=== PATIENT | male | born 1940 | race Caucasian/White ===

== ENCOUNTER 2017-03-10 17:50 | Emergency (ER) | payer OTHER, MEDICARE ==
[~2017-03-10] VITALS: Ht 167.6 cm; Wt 108.9 kg
[2017-03-10] MEDS ORDERED: VALSARTAN320 M1 PO (18:43)
[2017-03-10] MEDS ORDERED: CARVEDILOL25 M1 PO (18:43)
[2017-03-10] MEDS ORDERED: CENTRUM SILVER1 EAC4 PO (18:44)
[2017-03-10] MEDS ORDERED: ASPIRIN EC81 M1 PO (18:44)
[2017-03-10] MEDS ORDERED: CRESTOR5 M1 PO (18:44)
[2017-03-10] MEDS ORDERED: METFORMIN HCL1000 M1 PO (18:44)
[2017-03-10] MEDS ORDERED: MAGNESIUM400 M1 PO (18:45)
[2017-03-10] MEDS ORDERED: IBUPROFEN800 M1 PO (18:45)
[2017-03-10] MEDS ORDERED: AMLODIPINE BESYL5 M1 PO (18:45)
[2017-03-10] MEDS ORDERED: GLIMEPIRIDE1 M1 PO (18:46)
[2017-03-10] MEDS ORDERED: ELIQUIS5 M1 PO (18:46)
[2017-03-10] MEDS ORDERED: JANUVIA100 M1 PO (18:46)
[2017-03-10] MEDS ORDERED: FUROSEMIDE20 M1 PO (18:46)
[2017-03-10] MEDS ORDERED: CLOBETASOL PROP15 G1 TOP (18:47)
[2017-03-10 19:01] VITALS: BP 148/82
--- NOTE | 2017-03-10 19:16 | RADIOLOGY REPORT ---
EXAMINATION: XR ANKLE, RIGHT CLINICAL INFORMATION: Right ankle edema and tenderness COMPARISON: None TECHNIQUE: AP, lateral, and mortise views of the right ankle. FINDINGS: There is no visible acute fracture or dislocation. There is moderate hypertrophic changes talonavicular joint and intertarsal joints suggestive degenerative arthritis. A small calcaneal heel spur is seen. The soft tissues are normal. IMPRESSION: Small calcaneal heel spur. Dorsal talonavicular and intertarsal spurring. No acute fracture or dislocation seen.
--- NOTE | 2017-03-10 19:28 | ED ANKLE/FOOT INJURY COMPLAINT ---
History of Present Illness General Chief Complaint: General Adult Stated Complaint: PT IS HAVING A PROBLEM WITH HIS RT ANKLE Source: patient Exam Limitations: no limitations Vital Signs & Intake/Output Vital Signs & Intake/Output Vital Signs Date Time Temp Pulse Resp B/P B/P Pulse O2 O2 Flow FiO2 Mean Ox Delivery Rate 03/10 1908 Room Air 03/10 190 97.2 76 17 148/82 96 Room Air 03/10 1753 97.3 84 18 150/84 97 Room Air Room Air ED Intake and Output 03/11 0000 03/10 1200 Intake Total Output Total Balance Patient 108.862 kg Weight Weight Reported by Patient Measurement Method Allergies Coded Allergies: erythromycin base (Intermediate, GI UPSET 03/10/17) Reconcile Medications Amlodipine Besylate 5 MG TABLET 1 TAB PO DAILY HEART/BP (Reported) Apixaban (Eliquis) 5 MG TABLET 1 TAB PO BID BLOOD THINNER (Reported) Aspirin (Ecotrin*) 81 MG TABLET.DR 1 TAB PO DAILY HEART/BLOOD (Reported) Carvedilol 25 MG TABLET 1 TAB PO BID HEART/BP (Reported) Clobetasol Propionate 0.05 % OINT...G. 1 CHRISTEN TOP DAILY PSORIASIS (Reported) apply to affected area(s) Furosemide 20 MG TABLET 1 TAB PO PRN DIURETIC (Reported) Glimepiride 1 MG TABLET 1 TAB PO DAILY DM (Reported) Ibuprofen 800 MG TABLET 1 TAB PO PRN PAIN/INFLAMMATION (Reported) Magnesium Oxide (Magnesium) 400 MG CAPSULE 1 CAP PO DAILY SUPPLEMENT ( Reported) Metformin HCl 1,000 MG TABLET 1 TAB PO BID DM (Reported) Multivit-Min/FA/Lycopen/Lutein (Centrum Silver Men Tablet) 300 MCG-600 MCG-300 MCG TABLET 1 TAB PO DAILY SUPPLEMENT (Reported) Rosuvastatin Calcium (Crestor) 5 MG TABLET 1 TAB PO DAILY CHOLESTEROL ( Reported) Sitagliptin Phosphate (Januvia) 100 MG TABLET 1 TAB PO DAILY DM (Reported) Valsartan 320 MG TABLET 1 TAB PO DAILY BP (Reported) Triage Note: TRIAGE: 76 Y/O MALE PRESENTS C/O REDNESS TO RIGHT ANKLE SINCE YESETERDAY. REPORTS UNKNOWN INJURY OR EPISODE OF TRAUMA. REPORTS "IT COULD BE A BUG BITE." UNABLE TO VISUALIZE IN TRIAGE. Triage Nurses Notes Reviewed? yes HPI: 76M PMH CAD, HTN, HLD PRESENTING WITH MEDIAL RIGHT ANKLE SWELLING FOR THE PAST ONE DAY. INITIALLY DENIED TRAUMA BUT THEN REMEMBERED HE MAY HAVE WHACKED HIS ANKLE WITH HIS LAWNMOWER. DENIES PAIN BUT SIGNIFICANT MEDIAL ANKLE EDEMA PRESENT WITH TENDERNESS TO PALPATION. PULSES INTACT. NO LEG SWELLING Past History Travel History Traveled to [place] past 21 day No Medical History Any Pertinent Medical History? see below for history Cardiovascular: AFIB, hypertension, hyperlipidemia Endocrine: diabetes Surgical History Surgical History: none Psychosocial History What is your primary language Danish Tobacco Use: Never used ETOH Use: occasional use Illicit Drug Use: denies illicit drug use Family History Hx Contributory? No Review of Systems Review of Systems Constitutional: Reports: no symptoms. EENTM: Reports: no symptoms. Respiratory: Reports: no symptoms. Cardiovascular: Reports: no symptoms. GI: Reports: no symptoms. Genitourinary: Reports: no symptoms. Musculoskeletal: Reports: see HPI. Skin: Reports: no symptoms. Neurological/Psychological: Reports: no symptoms. Hematologic/Endocrine: Reports: no symptoms. Immunologic/Allergic: Reports: no symptoms. All Other Systems: Reviewed and Negative Physical Exam Physical Exam General Appearance: well developed/nourished, no apparent distress, alert, awake , comfortable Head: atraumatic, normal appearance Eyes: Bilateral: normal appearance. Ears, Nose, Throat: normal pharynx, normal ENT inspection Neck: normal inspection, supple Cardiovascular/Respiratory: normal breath sounds, normal peripheral pulses, regular rate/rhythm Back: normal inspection, normal range of motion, no vertebral tenderness Leg/Knee/Thigh Left: normal range of motion, normal inspection Leg/Knee/Thigh Right: normal range of motion, normal inspection Ankle Left: normal inspection, normal range of motion Ankle Right: swelling, SWELLING, TENDERNESS TO PALPIATION, FULL RANGE OF MOTION, NO ERYTHEMA Foot Right: normal inspection, normal range of motion Progress Differential Diagnosis: DVT, CHF, arterial insufficiency, cellulitis, septic arthritis, gout, fracture, dislocation, sprain, contusion, compartmental syndrome Plan of Care: ANKLE X-RAY NEGATIVE FOR FRACUTRE. PATIENT CAN BE DISCHARGED HOME, REST, ICE, COMPRESSION, ELEVATION. Diagnostic Imaging: Viewed by Me: Radiology Read. Discussed w/RAD: Radiology Read. Radiology Impression: PATIENT: SONY HIDALGO JR PRESENT AGE: 76 PATIENT ACCOUNT NO: [id number] : 41 LOCATION: [facility] ORDERING PHYSICIAN: LINH COLLINS MD SERVICE DATE: 03/10/17 EXAM TYPE : RAD - XRY-TWO VIEW RIGHT ANKLE EXAMINATION: XR ANKLE, RIGHT CLINICAL INFORMATION: Right ankle edema and tenderness COMPARISON: None TECHNIQUE: AP, lateral, and mortise views of the right ankle. FINDINGS: There is no visible acute fracture or dislocation. There is moderate hypertrophic changes talonavicular joint and intertarsal joints suggestive degenerative arthritis. A small calcaneal heel spur is seen. The soft tissues are normal. IMPRESSION: Small calcaneal heel spur. Dorsal talonavicular and intertarsal spurring. No acute fracture or dislocation seen. 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
== END 2017-03-10 19:50 ==
LOC: ERH 17:50
DX: S93.401A Sprain of unspecified ligament of right ankle, initial encounter (principal); W22.8XXA Striking against or struck by other objects, initial encounter; Y92.9 Unspecified place or not applicable; Y93.9 Activity, unspecified
CPT/HCPCS: 73600-RT